=== PATIENT | male | born 1950 | race Hispanic/Latino ===

== ENCOUNTER 2023-08-19 18:03 | Emergency (ER) | payer BC, OTHER ==
[~2023-08-19] VITALS: Ht 170.2 cm; Wt 84.8 kg
[2023-08-19] MEDS: 0.9%NACL 1000ML 1,000 ML IV ONE (18:19)
[2023-08-19 18:35] LABS: BASOPHILS # (AUTO) 0.09 K/uL (0.00-0.20); BASOPHILS % (AUTO) 0.8 % (0.0-5.0); EOSINOPHILS # (AUTO) 0.01 K/uL (0.00-0.70); EOSINOPHILS % (AUTO) 0.1 % (0.0-8.0); HEMATOCRIT 40.6 % (42-54); IMMATURE GRANULOCYTE ABSOLUTE 0.05 K/uL (0-1); LYMPHOCYTES # (AUTO) 0.8 K/uL (1.0-4.8); MEAN CORPUSCULAR HEMOGLOBIN 30.8 pg (27.0-33.0); MEAN CORPUSCULAR HGB CONC 34.2 g/dL (32.0-36.0); MEAN CORPUSCULAR VOLUME 89.8 fL (79-99); MONOCYTES # (AUTO) 0.6 K/uL (0.1-1.0); MONOCYTES % (AUTO) 5.6 % (3.0-13.0); NEUTROPHILS # (AUTO) 9.4 K/uL (1.8-7.7); PLATELET COUNT (AUTO) 125 K/uL (130-400); RED BLOOD CELL COUNT(AUTO) 4.52 MIL/uL (4.50-6.20); RED CELL DISTRIBUTION WIDTH 14.7 % (11.0-15.5); WHITE BLOOD COUNT (AUTO) 10.9 K/uL (4.8-10.8)
[2023-08-19] MEDS ORDERED: ACETAMINOPHEN 500 MG TABLET PO STA (18:38)
[2023-08-19 18:44] LABS: CARBON DIOXIDE 22 mmol/L (21-32); CHLORIDE 98 mmol/L (101-111); GLOMERULAR FILTR. RATE CALC 79 mL/min (>90); GLUCOSE,RANDOM 158 mg/dL (70-105); POTASSIUM 3.8 mmol/L (3.5-5.1); SODIUM SERUM 131 mmol/L (136-145); UREA NITROGEN, BLOOD 12 mg/dL (7-18)
[2023-08-19 18:48] LABS: INR 1.1 (0.85-1.15); PROTHROMBIN TIME 11.6 SEC (9.6-11.6)
[2023-08-19 18:51] LABS: ALANINE AMINOTRANSFERASE 53 U/L (12-78); ALBUMIN 2.8 g/dL (3.5-5.0); ALCOHOL, BLOOD < 3 mg/dL (0-10); APPEARANCE,URINE CLOUDY (CLEAR); ASPARTATE AMINOTRANSFERASE 45 U/L (10-37); BILIRUBIN,TOTAL 1.6 mg/dL (0.2-1.0); BILIRUBIN,URINE SMALL mg/dL (NEGATIVE); COLOR,URINE YELLOW (YELLOW); CREATINE KINASE, TOTAL 61 U/L (21-232); GLUCOSE, URINE (UA) NEGATIVE (NEGATIVE); KETONES,URINE 5 mg/dL (NEGATIVE); LEUKOCYTE ESTERASE ,URINE MODERATE Leu/uL (NEGATIVE); NITRATE,URINE NEGATIVE (NEGATIVE); OCCULT BLOOD,URINE LARGE (NEGATIVE); PH,URINE 5.5 (5.0-8.0); PROTEIN,URINE 100 mg/dL (NEGATIVE); TOTAL PROTEIN, SERUM 6.7 g/dL (6.0-8.3)
[2023-08-19 18:55] LABS: MUCUS,URINE MOD LPF (None Seen); RBC,URINE 51-100 /HPF (0-1); TRANSITIONAL EPI CELLS,URINE FEW /HPF (None Seen); WBC CLUMP MOD /HPF (0-1); WBC,URINE TNTC /HPF (0-1)
[2023-08-19] MEDS: 0.9%NACL 1000ML 1,983 ML IV ONE (18:55)
[2023-08-19 18:56] LABS: COVID19 (SARS ANTIGEN RAPID) PRESUMPTIVE NEGATIVE (NEGATIVE); INFLUENZA TYPE A Negative For Type A (NEGATIVE); INFLUENZA TYPE B Negative For Type B (NEGATIVE)
[2023-08-19 19:00] LABS: THYROID STIMULATING HORMONE 1.2 uIU/mL (0.36-3.74)
[2023-08-19 19:04] LABS: B-TYPE NATRIURETIC PEPTIDE 35 pg/mL (0-100)
[2023-08-19] MEDS: CEFTRIAXONE 1G VIAL IV STA (19:34)
[2023-08-19 19:46] VITALS: BP 127/73; PULSE 89; RESP 16; O2SAT 94
[2023-08-19] MEDS ORDERED: CEFP200T14 PO (20:01)
== END 2023-08-19 20:12 | disposition home or self-care (01) ==
LOC: EDH 18:03
DX: N12 Tubulo-interstitial nephritis, not specified as acute or chronic (principal); Z20.822 Contact with and (suspected) exposure to COVID-19; J40 Bronchitis, not specified as acute or chronic; I10 Essential (primary) hypertension; E78.00 Pure hypercholesterolemia, unspecified; Z79.2 Long term (current) use of antibiotics
CPT/HCPCS: 99285; 96374; 71045; 96361; 87426; 84443; 82550; 84484; 80053; 83880; 85025; 85610; 85730; 87040 ×2; 87086 ×3; 87186 ×2; 87804 ×2; 83605; 81001; 36415; 93005; J7030 ×2; J0696